=== PATIENT | female | born 1935 | race Caucasian/White ===

== ENCOUNTER 2019-02-14 12:58 | Inpatient (IN) ==
[2019-02-14] MEDS ORDERED: KEFZOL 1 GM/D5W 2 GM/100 ML IVPB ONE (13:29)
[2019-02-14] MEDS ORDERED: LR 1,000 ML ONE ×2 (13:29→18:41)
[2019-02-14] MEDS ORDERED: PEPCID ONE (14:17)
[2019-02-14] MEDS ORDERED: REGLAN ONE (14:17)
[2019-02-14] MEDS ORDERED: DIPRIVAN 1% ONE (14:54)
[2019-02-14] MEDS ORDERED: XYLOCAINE-MPF 2% ONE (14:54)
[2019-02-14] MEDS ORDERED: FENTANYL ONE (14:54)
[2019-02-14] MEDS ORDERED: DECADRON ONE (14:57)
[2019-02-14] MEDS ORDERED: ZOFRAN ONE (14:57)
[2019-02-14] MEDS ORDERED: VANCOMYCIN 1 GM/NS 1 GM/250 ML IVPB ONE (17:33)
[2019-02-14] MEDS ORDERED: MORPHINE ONE ×3 (18:15→18:28)
[2019-02-14] MEDS ORDERED: PERCOCET-5 PO PRN (18:30)
[2019-02-14] MEDS ORDERED: VANCOMYCIN IV PER PHARMACY MISC SCH (18:30)
[2019-02-14] MEDS ORDERED: PERCOCET-5 ONE (18:36)
[2019-02-14] MEDS ORDERED: LR 1,000 ML IV SCH (19:00)
[2019-02-14] MEDS ORDERED: VANCOMYCIN 1 GM/NS 1 GM/250 ML IVPB IV ONE (19:00)
[2019-02-14] MEDS ORDERED: VALIUM PO PRN (19:32)
[2019-02-14] MEDS: MORPHINE IV PRN (19:41)
--- NOTE | 2019-02-14 19:52 | OPERATIVE NOTE ---
PROCEDURE DATE: 02/14/2019 PREOPERATIVE DIAGNOSIS: Right carpal tunnel postoperative infection with progression of the infection into the thumb flexor pollicis longus tendon. POSTOPERATIVE DIAGNOSIS: Right carpal tunnel postoperative infection with progression of the infection into the thumb flexor pollicis longus tendon. PROCEDURE: Irrigation and debridement of right hand including the palm, distal wrist, and thumb. SURGEON: Gurmeet Villar MD. DESCRIPTION OF PROCEDURE: Patient was brought to the operative suite and placed in supine position. After successful administration of general anesthesia, a well-padded tourniquet was placed on the right arm. Right upper extremity was prepped and draped in the usual sterile fashion. The previous carpal tunnel incision was opened. She was found have significant synovitis, significant purulent material. Cultures were obtained. There was a small bulbous- appearing area on her distal wrist just proximal to her distal wrist crease that was incised, communicated with the carpal tunnel space, but did not have any henry purulent material. An oblique incision was made overlying the proximal phalanx of the thumb, dissected sharply through the skin. There was some mild purulent material that was excised and cultures were obtained. The flexor tendon was intact. All 3 wounds were copiously irrigated. Once this was completed, a [place] drain was placed in each of the 3, and were closed with interrupted nylon sutures. Sterile dressing was applied. The patient tolerated the procedure well without complication. At the end of the procedure, all counts were correct. The patient was transferred to the recovery room in stable condition. cc: Gurmeet Villar MD
[2019-02-14] MEDS: PERCOCET-5 PO PRN ×2 (20:09→23:38)
[2019-02-14 20:12] LABS: CALCIUM 9.1 mg/dL (8.8-10.2); CREATININE 1.1 mg/dL (0.5-0.9); POTASSIUM 4.7 mmol/L (3.5-5.1)
[2019-02-14] MEDS ORDERED: MEVACOR PO SCH (21:00)
[2019-02-14] MEDS: XALATAN 0.005% OPH SOLN BOTH EYES SCH (23:37)
[2019-02-14] MEDS: COSOPT OPHTH SOLN BOTH EYES SCH (23:38)
[2019-02-15 06:59] LABS: URINE SOURCE CLEAN CATCH
[2019-02-15 07:02] LABS: BILIRUBIN URINE NEGATIVE (NEGATIVE); BLOOD URINE NEGATIVE (NEGATIVE); COLOR YELLOW; GLUCOSE URINE NEGATIVE (NEGATIVE); KETONE URINE NEGATIVE (NEGATIVE); LEUKOCYTES URINE NEGATIVE (NEGATIVE); NITRITE URINE NEGATIVE (NEGATIVE); PROTEIN URINE TRACE mg/dL (NEGATIVE); SP GRAVITY URINE 1.021; TURBIDITY URINE CLEAR (CLEAR); UROBILINOGEN URINE NORMAL (NORMAL)
[2019-02-15 07:04] LABS: UR EPITHELIAL CELLS <10 /HPF (<10); URINE BACTERIA NEGATIVE /HPF; URINE RBC <10 /HPF (<10); URINE WBC <10 /HPF (<10)
[2019-02-15] MEDS: VASOTEC PO SCH (08:39)
[2019-02-15] MEDS: COSOPT OPHTH SOLN BOTH EYES SCH ×2 (08:39→21:26)
[2019-02-15] MEDS: PERIDEX MT SCH ×2 (08:39→21:27)
[2019-02-15] MEDS ORDERED: CUBICIN 500 MG in NS 100 ML IV SCH (13:15)
[2019-02-15] MEDS: MORPHINE IV PRN (14:03)
--- NOTE | 2019-02-15 17:38 | INFECTIOUS DISEASE CONSULT REP ---
DATE: 02/15/2019 CONCLUSION: The patient has an infection in her right hand consisting of an abscess and synovitis. A Gram stain taken from the patient's hand at surgery is growing a gram-positive cocci. RECOMMENDATIONS: I have discontinued vancomycin and started the patient on daptomycin pending culture results. A side effect of the antibiotic, namely muscle toxicity, has been explained to the patient who agrees with treatment. I have told the patient that while she is on daptomycin, she should not take her cholesterol drug, because it along with daptomycin can enhance the risk of muscle toxicity. I further told her that once the daptomycin is stopped that she can restart her cholesterol medicine, namely Mevacor. DISCUSSION: The patient had carpal tunnel surgery on her right hand and about approximately 5 to 6 days later she developed swelling and pain in the hand. She was admitted to the hospital and underwent surgery yesterday performed by Dr. Villar. He found at surgery an abscess as well as synovitis. Multiple cultures have been taken. The Gram stain from the culture taken from the thumb showed gram-positive cocci. The other cultures thus far are negative. The patient's laboratory studies show a creatinine is 1.1. GFR is 48. Urinalysis shows no white cells or bacteria. I have ordered tomorrow for a CBC to be drawn. PAST MEDICAL HISTORY/REVIEW OF SYSTEMS: Eyes and Ears: The patient does not have any problem hearing or seeing. Neck: No stiffness. Respiratory: No dyspnea or cough. Cardiac: No chest pain or palpitations. GI: No nausea, vomiting, or diarrhea. Genitourinary: No dysuria or flank pain. Bones, Joints, Muscles: See present illness. Neurologic: No seizures. No loss of motor or sensory function. OBSTETRICAL/GYNECOLOGIC HISTORY: She is a 2 para 2, AB 0. She has had a hysterectomy. PREVIOUS HOSPITALIZATIONS AND OPERATIONS: The patient has had labor and deliveries, a hysterectomy, a laminectomy, a cholecystectomy, surgery on her foot. She has had cataract surgery and glaucoma surgery also. MEDICAL DISEASES: Positive for hypertension, cataracts, glaucoma, hyperlipidemia, and skin cancer. INFECTIOUS DISEASE HISTORY: Shingles which was complicated by a staphylococcal infection. FAMILY HISTORY: Positive for diabetes mellitus, hypertension, myocardial infarction, and cancer. SOCIAL HISTORY[place] . She does not smoke, does not drink alcoholic beverages, and does not abuse drugs. She does not have any pets at home. ALLERGIES: She has an allergy to codeine. PHYSICAL EXAMINATION: Vital Signs: Temperature is 97.7 degrees, pulse 57, respirations 18, blood pressure is 107/51. Patient weighs 185 pounds. General: This is an obese, but otherwise healthy- appearing, elderly female. She is in no acute distress. Head, eyes, ears, nose, and throat: She can hear my spoken words and see near objects. No drainage is noted from the nose or ears. Neck: No meningismus. Lungs: Clear to auscultation. Cardiovascular: Regular heart rate. Abdomen: Soft and nontender. Extremities: The patient has a large dressing on her right hand. The dressing is intact. Neurologic: Patient is alert. She can move her extremities. There is no tremor. Her sensation is intact to touch. Her memory as regarding her medical history is intact. Thank you for the consultation. cc: MD Gurmeet Lopez MD
[2019-02-15] MEDS: XALATAN 0.005% OPH SOLN BOTH EYES SCH (21:26)
--- NOTE | 2019-02-15 21:45 | ORTHOPAEDICS PROGRESS NOTE ---
DATE: 02/15/2019 SUBJECTIVE: Tonya Casillas is an 83-year-old female with a right hand infection. She complains of some mild pain, but otherwise is doing well. OBJECTIVE: Her dressing is clean, dry, and intact. Her hand is neurovascularly intact. She has intact sensation to light touch, brisk capillary refill. LABORATORY: Her Gram stain is gram-positive. IMPRESSION: Gram-positive cocci infection of right hand. PLAN: We will continue her on antibiotics per Dr. Hooper. I want to thank Dr. Hooper for his consultation and his assistance with her case. Once we have the definitive cultures and her wounds are healing well, we will let her go home. Tomorrow some time, I will change the dressing and remove her drains. cc: Gurmeet Villar MD
[2019-02-16] MEDS ORDERED: VANCOMYCIN 1,500 MG in NS 250 ML IV SCH (06:00)
[2019-02-16 06:04] LABS: BASO# 0.02 X1000 (0.0-0.2); BASO% 0.3 % (0.0-0.8); EOS# 0.03 X1000 (0.0-0.7); EOS% 0.4 % (0.0-10.0); HEMATOCRIT 34.2 % (37.0-47.0); IMM GRAN# 0.02 X1000 (0.0-0.04); IMM GRAN% 0.3 % (0.0-0.5); LYMPH# 2.72 X1000 (1.2-3.4); LYMPH% 35.6 % (20.5-51.1); MCH 28.6 PG (27-31); MCHC 32.2 g/dL (33-37); MCV 89.1 FL (81-99); MONO# 0.64 X1000 (0.11-0.59); MONO% 8.4 % (1.7-9.3); MPV 9.3 FL (7.4-10.4); PLT 225 X1000 (130-400); RBC 3.84 XMIL (4.2-5.4); RDW 12.1 % (11.5-14.5); WBC 7.63 X1000 (4.8-10.8)
[2019-02-16] MEDS: PERIDEX MT SCH (08:36)
[2019-02-16] MEDS: VASOTEC PO SCH (08:36)
[2019-02-16] MEDS: COSOPT OPHTH SOLN BOTH EYES SCH (08:36)
[2019-02-16 12:46] VITALS: BP 136/70
--- NOTE | 2019-02-17 05:07 | DISCHARGE SUMMARY ---
ADMISSION DATE: 02/14/2019 DISCHARGE DATE: 02/16/2019 DISCHARGE DIAGNOSIS: Right hand postsurgical infection with Staph aureus, methicillin sensitive. DISCHARGE MEDICATIONS: Keflex and Percocet. DISPOSITION: Patient discharged home with instructions for dressing changes. Instructed on range of motion of her hands. Instructed to return to see me in 1 week. HOSPITAL COURSE: On the day of admission, the patient underwent irrigation and debridement of her right hand. Her postoperative care is unremarkable. Dr. Hooper saw her in consultation. Her cultures grew out Staph aureus. He recommends to send her home on Keflex, which we have done. She has no complaints at discharge. She is afebrile. Her swelling is much improved. Her erythema is much improved. She has good range of motion of her hand. Her hand is neurovascularly intact. She is discharged home in stable condition with instructions to follow up as described above. cc: Gurmeet Villar MD [facility]
== END 2019-02-16 13:57 | disposition home or self-care (01) | DRG 857 ==
LOC: 4N 12:58 → PAT 12:58 → OBSVTOIN 18:09 → 4N 18:35
PROVIDERS: ADMIT Orthopaedic Surgery; ATTEND Orthopaedic Surgery